=== PATIENT | female | born 1930 | race Caucasian/White ===

== ENCOUNTER 2016-03-09 10:05 | Emergency (ER) | payer MEDICARE ==
[2016-03-09] MEDS ORDERED: SODIUM CHLORIDE 0.9% 1,000 ML ONE ×2 (10:33→13:03)
[2016-03-09 10:48] LABS: ABSOLUTE NEUTROPHIL COUNT 2.7 K/mm3 (1.8-7.7); BASO % 0.2 % (0.2-1.0); EOS % 0.4 % (0.9-2.9); HEMATOCRIT 43.1 % (37.0-47.0); IMM NEUT% 0.6 % (0-1); LYMPH # 1.7 (1.0-4.8); LYMPH % 32.6 % (15-45); MEAN CELL VOLUME 95.8 fl (81.0-99.0); MEAN CORPUSCULAR HEMOGLOBIN 31.1 pg (27.0-31.0); MEAN CORPUSCULAR HGB CONC 32.5 g/dl (33.0-37.0); MEAN PLATELET VOLUME 10.3 fl (7.4-10.4); MONO # 0.8 (0.0-0.8); MONO % 14.9 % (4-12); NEUT % 51.3 % (43-75); PLATELET COUNT 142 K/mm3 (130-400); RED CELL DISTRIBUTION WIDTH 12.5 % (11.5-14.5)
[2016-03-09] MEDS ORDERED: D5W IV SCH (11:00)
[2016-03-09] MEDS ORDERED: PROCAINAMIDE HCL IV SCH (11:00)
[2016-03-09 11:03] LABS: ALB/GLOB RATIO 1.1 (>1.0); ALBUMIN 4.2 gm/dL (3.5-5.7)
[2016-03-09 11:18] LABS: URINE APPEARANCE CLEAR; URINE BILIRUBIN NEGATIVE (NEGATIVE); URINE BLOOD TRACE (NEGATIVE); URINE COLOR YELLOW; URINE GLUCOSE (UA) NEGATIVE (NEGATIVE); URINE LEUKOCYTE ESTERASE TRACE (NEGATIVE); URINE NITRITE NEGATIVE (NEGATIVE); URINE PROTEIN TRACE (NEGATIVE); URINE UROBILINOGEN NORMAL (0-1 mg/dl)
[2016-03-09 11:24] LABS: URINE EPITHELIAL CELLS 0-1 /hpf
[2016-03-09 11:25] LABS: URINE BACTERIA 1+
[2016-03-09 12:13] LABS: TROPONIN I < 0.01 ng/ml (0.0-0.06)
[2016-03-09 12:17] LABS: CKMB ISOENZYME 1.5 ng/ml (0.6-6.3)
[2016-03-09] MEDS ORDERED: PROPOFOL 20 ML IV ONE (12:49)
== END 2016-03-09 14:08 | disposition home or self-care (01) ==
LOC: ED 10:05
DX: I48.0 Paroxysmal atrial fibrillation (principal); Z79.899 Other long term (current) drug therapy; Z88.5 Allergy status to narcotic agent; Z88.8 Allergy status to other drugs, medicaments and biological substances; Z85.3 Personal history of malignant neoplasm of breast
CPT/HCPCS: 85025; 82553; 87086; 80162; 80053; 84484; 81001; 96375; 99284 ×2; 92960 ×2; 96361; 96365; J2690; J7030 ×2